=== PATIENT | male | born 1990 | race Asian ===

== ENCOUNTER 2022-09-19 19:59 | Emergency (ER) | payer BC, OTHER ==
[~2022-09-19] VITALS: Ht 167.7 cm; Wt 68.0 kg
[2022-09-19 20:24] LABS: BASOPHILS # (AUTO) 0.1 10^3/uL (0.0-0.1); BASOPHILS % (AUTO) 1 % (0-10); EOSINOPHILS # (AUTO) 0.1 10^3/uL (0.0-0.3); EOSINOPHILS % (AUTO) 1 % (0-10); HEMATOCRIT 48 % (40-54); HEMOGLOBIN 16.6 g/dL (13.3-17.7); LYMPHOCYTES # (AUTO) 2.6 10^3/uL (1.0-4.0); LYMPHOCYTES % (AUTO) 30 % (12-44); MEAN CORPUSCULAR HEMOGLOBIN 29 pg (25-34); MEAN CORPUSCULAR HGB CONC 35 g/dL (32-36); MEAN CORPUSCULAR VOLUME 83 fL (80-99); MEAN PLATELET VOLUME 10.8 fL (9.0-12.2); MONOCYTES # (AUTO) 0.6 10^3/uL (0.0-1.0); MONOCYTES % (AUTO) 7 % (0-12); NEUTROPHILS # (AUTO) 5.3 10^3/uL (1.8-7.8); NEUTROPHILS % (AUTO) 60 % (42-75); PLATELET COUNT 253 10^3/uL (130-400); WHITE BLOOD COUNT 8.8 10^3/uL (4.3-11.0)
[2022-09-19 20:38] LABS: ALBUMIN 4.2 GM/DL (3.2-4.5); ALKALINE PHOSPHATASE 74 U/L (40-136); BILIRUBIN,TOTAL 0.5 MG/DL (0.1-1.0); BUN/CREATININE RATIO 14; CALCIUM 9.4 MG/DL (8.5-10.1); CARBON DIOXIDE 18 MMOL/L (21-32); CHLORIDE 105 MMOL/L (98-107); CREATININE SERUM 0.79 MG/DL (0.60-1.30); GFR ESTIMATED 123; GLUCOSE 99 MG/DL (70-105); MAGNESIUM 1.9 MG/DL (1.6-2.4); POTASSIUM 3.6 MMOL/L (3.6-5.0); SODIUM 137 MMOL/L (135-145); TOTAL PROTEIN 7.1 GM/DL (6.4-8.2)
--- NOTE | 2022-09-19 20:39 | ED Chest Pain ---
General Chief Complaint: Chest Pain Stated Complaint: CHEST PAIN Nursing Triage Note: PT TO ED BY EMS WITH C/O L SIDED CP AND L ARM PAIN. PT REPORTS A "PULLING" SENSATION IN L ARM/L CHEST WHILE DRIVING HOME FROM [place]. PT THEN HAD A BM AT HOME FOLLOWED BY PAIN IN L CHEST/ARM RATED 8/10 AT ITS WORST, MINIMAL AT THIS TIME. PT GIVEN 324 MG ASA EN ROUTE BY EMS. REPORTS SOME SOB AT THIS TIME. CHEST TENDER TO PALPATION. Source: patient Exam Limitations: no limitations History of Present Illness Date Seen by Provider: Sep 19, 2022 Time Seen by Provider: 20:06 Allergies and Home Medications Allergies Coded Allergies: No Known Drug Allergies (Unverified , 09/19/22) Past Yrwyexb-Pethio-Dogcog Hx Patient Social History Tobacco Use?: Yes Tobacco type used: Cigarettes Smoking Status: Current Everyday Smoker Use of E-Cig and/or Vaping dev: No Substance use?: No Alcohol Use?: No Pt feels they are or have been: No Immunizations Up To Date Influenza Vaccine Up-to-Date: No; Not Current First/Initial COVID19 Vaccinat: X1 Past Medical History Surgery/Hospitalization HX: DENIES Physical Exam Vital Signs Vital Signs - First Documented 09/19/22 19:59 Temp 37.1 Pulse 78 Resp 16 B/P (MAP) 122/89 (100) Pulse Ox 98 O2 Delivery Room Air Capillary Refill : Less Than 3 Seconds Height, Weight, BMI Height: '" Weight: lbs. oz. kg; 24.00 BMI Method: Progress/Results/Core Measures Results/Orders Lab Results Laboratory Tests Test 09/19/22 20:00 09/19/22 22:53 Range/Units White Blood Count 8.8 4.3-11.0 10^3/uL Red Blood Count 5.76 H 4.30-5.52 10^6/uL Hemoglobin 16.6 13.3-17.7 g/dL Hematocrit 48 40-54 % Mean Corpuscular Volume 83 80-99 fL Mean Corpuscular Hemoglobin 29 25-34 pg Mean Corpuscular Hemoglobin Concent 35 32-36 g/dL Red Cell Distribution Width 12.3 10.0-14.5 % Platelet Count 253 130-400 10^3/uL Mean Platelet Volume 10.8 9.0-12.2 fL Immature Granulocyte % (Auto) 0 % Neutrophils (%) (Auto) 60 42-75 % Lymphocytes (%) (Auto) 30 12-44 % Monocytes (%) (Auto) 7 0-12 % Eosinophils (%) (Auto) 1 0-10 % Basophils (%) (Auto) 1 0-10 % Neutrophils # (Auto) 5.3 1.8-7.8 10^3/uL Lymphocytes # (Auto) 2.6 1.0-4.0 10^3/uL Monocytes # (Auto) 0.6 0.0-1.0 10^3/uL Eosinophils # (Auto) 0.1 0.0-0.3 10^3/uL Basophils # (Auto) 0.1 0.0-0.1 10^3/uL Immature Granulocyte # (Auto) 0.0 0.0-0.1 10^3/uL Prothrombin Time 14.5 12.2-14.7 SEC INR Comment 1.1 0.8-1.4 Activated Partial Thromboplast Time 26 24-35 SEC D-Dimer < 0.27 0.00-0.49 UG/ML Sodium Level 137 135-145 MMOL/L Potassium Level 3.6 3.6-5.0 MMOL/L Chloride Level 105 98-107 MMOL/L Carbon Dioxide Level 18 L 21-32 MMOL/L Anion Gap 14 5-14 MMOL/L Blood Urea Nitrogen 11 7-18 MG/DL Creatinine 0.79 0.60-1.30 MG/DL Estimat Glomerular Filtration Rate 123 BUN/Creatinine Ratio 14 Glucose Level 99 70-105 MG/DL Calcium Level 9.4 8.5-10.1 MG/DL Corrected Calcium 9.2 8.5-10.1 MG/DL Magnesium Level 1.9 1.6-2.4 MG/DL Total Bilirubin 0.5 0.1-1.0 MG/DL Aspartate Amino Transf (AST/SGOT) 16 5-34 U/L Alanine Aminotransferase (ALT/SGPT) 26 0-55 U/L Alkaline Phosphatase 74 40-136 U/L Myoglobin 29.9 10.0-92.0 NG/ML Troponin I < 0.028 < 0.028 <0.028 NG/ML Total Protein 7.1 6.4-8.2 GM/DL Albumin 4.2 3.2-4.5 GM/DL My Orders Orders - RACHELE ANDRADE MD Ekg Tracing (09/19/22 20:02) Cbc With Automated Diff (09/19/22 20:07) Magnesium (09/19/22 20:07) Chest 1 View, Ap/Pa Only (09/19/22 20:07) Comprehensive Metabolic Panel (09/19/22 20:07) Myoglobin Serum (09/19/22 20:07) Protime With Inr (09/19/22 20:07) Partial Thromboplastin Time (09/19/22 20:07) O2 (09/19/22 20:07) Monitor-Rhythm Ecg Trace Only (09/19/22 20:07) Lipid Panel (09/20/22 06:00) Ed Iv/Invasive Line Start (09/19/22 20:07) Fibrin Degradation Products (09/19/22 20:07) Troponin I Chriss (09/19/22 20:00) Ketorolac Injection (Toradol Injection) (09/19/22 21:15) Troponin I Payne (09/19/22 23:00) Medications Given in ED Current Medications Medications Dose Ordered Sig/Francisco Javier Route Start Time Stop Time Status Last Admin Dose Admin Ketorolac Tromethamine 30 mg ONCE ONCE IVP 09/19/22 21:15 09/19/22 21:16 DC 09/19/22 21:24 30 MG Vital Signs/I&O 09/19/22 19:59 Temp 37.1 Pulse 78 Resp 16 B/P (MAP) 122/89 (100) Pulse Ox 98 O2 Delivery Room Air Blood Pressure Mean: 100 Initial ECG Impression Date: Sep 19, 2022 Initial ECG Impression Time: 20:06 Initial ECG Rate: 66 Initial ECG Rhythm: Normal Sinus Initial ECG Intervals: Normal Initial ECG Impression: Normal Comment Normal sinus rhythm with no ST elevation or depression. No abnormal intervals or axis deviation. Departure Impression Primary Impression: Atypical chest pain Disposition: 01 HOME, SELF-CARE Condition: Improved Departure-Patient Inst. Decision time for Depature: 23:39 Patient Instructions: Chest Pain That Is Not Caused by the Heart (DC) Add. Discharge Instructions: Your work-up in the emergency room including screening tests for heart problems and blood clots was unremarkable. Your pain is likely due to either inflammation in the lining of the chest cavity (pleuritis) or in the chest wall. For this pain you may take ibuprofen up to 600 mg every 6 hours as needed. Add Tylenol (acetaminophen) up to 1000 mg every 6 hours as needed for additional pain relief. Make a follow-up appointment with a primary care provider for further evaluation. If you have worsening symptoms despite following these instructions, please return to care. All discharge instructions reviewed with patient and/or family. Voiced understa nding. RACHELE ANDRADE MD Sep 19, 2022 20:39
[2022-09-19 20:42] LABS: INR 1.1 (0.8-1.4); PROTHROMBIN TIME PATIENT 14.5 SEC (12.2-14.7)
--- NOTE | 2022-09-19 21:01 | Diagnostic Imaging Report ---
HISTORY: Chest pain. TECHNIQUE: Frontal view of the chest. COMPARISON: None. FINDINGS: There is elevation of the right hemidiaphragm, otherwise lung volumes are normal. No consolidation is seen. There is no pleural effusion or pneumothorax. The cardiac silhouette is normal in size. IMPRESSION: No acute pulmonary abnormality. Dictated by: Dictated on workstation # [id number]
[2022-09-19] MEDS ORDERED: KETOROLAC 30 MG/ML VIAL IVP ONE (21:15)
[2022-09-19 21:38] LABS: ALANINE AMINOTRANSFERASE 26 U/L (0-55)
[2022-09-19 23:55] VITALS: BP 101/68
== END 2022-09-19 23:55 | disposition home or self-care (01) ==
LOC: ER 20:01
DX: R07.89 Other chest pain (principal); F17.210 Nicotine dependence, cigarettes, uncomplicated; Z28.311 Partially vaccinated for COVID-19
CPT/HCPCS: 36415; 71045; 80053; 83735; 83874; 84484; 85025; 85379; 85610; 85730; 93005; 93041